=== PATIENT | male | born 1960 | race Caucasian/White ===

== ENCOUNTER → 2019-11-26 | Emergency (ER) | payer OTHER ==
[~2019-11-26] VITALS: Ht 162.6 cm; Wt 72.6 kg
== END | disposition home or self-care (01) ==
LOC: ER 19:21
DX: N20.0 Calculus of kidney (principal)

== ENCOUNTER → 2019-12-01 17:35 | Outpatient (CLI) | payer OTHER | END | disposition home or self-care (01) | LOC: LAB 17:35 | DX: R97.20 Elevated prostate specific antigen [PSA] (principal); C64.1 Malignant neoplasm of right kidney, except renal pelvis ==

== ENCOUNTER → 2019-12-04 | Outpatient (CLI) | payer OTHER | END | disposition home or self-care (01) | LOC: TOM 08:21 | DX: C64.1 Malignant neoplasm of right kidney, except renal pelvis (principal) ==

== ENCOUNTER 2020-01-18 10:01 | Outpatient (CLI) | payer OTHER | END 2020-01-18 10:06 | disposition home or self-care (01) | LOC: LAB 10:01 | DX: C64.1 Malignant neoplasm of right kidney, except renal pelvis (principal) ==

== ENCOUNTER 2020-01-18 11:30 | Outpatient (CLI) | payer OTHER | END 2020-01-18 11:50 | disposition home or self-care (01) | LOC: SONOGRAMA 11:30 | DX: N50.89 Other specified disorders of the male genital organs (principal); C64.1 Malignant neoplasm of right kidney, except renal pelvis ==

== ENCOUNTER 2020-01-31 13:47 | Outpatient (CLI) | payer OTHER | END 2020-01-31 14:01 | disposition home or self-care (01) | LOC: RAD 13:47 | DX: C64.1 Malignant neoplasm of right kidney, except renal pelvis (principal) ==

== ENCOUNTER 2020-02-06 08:36 | Outpatient (CLI) | payer OTHER | END 2020-02-06 09:30 | disposition home or self-care (01) | LOC: NUCLEAR 08:36 | DX: C64.1 Malignant neoplasm of right kidney, except renal pelvis (principal) | CPT/HCPCS: 78708; A9539 ==

== ENCOUNTER 2020-02-06 08:37 | Outpatient (CLI) | payer OTHER | END 2020-02-06 08:48 | disposition home or self-care (01) | LOC: LAB 08:37 | DX: N39.0 Urinary tract infection, site not specified (principal); C64.1 Malignant neoplasm of right kidney, except renal pelvis ==

== ENCOUNTER 2020-05-03 07:29 | Outpatient (CLI) | payer OTHER | END 2020-05-03 07:33 | disposition home or self-care (01) | LOC: NUCLEAR 07:29 | PROVIDERS: ATTEND Urology | DX: C64.1 Malignant neoplasm of right kidney, except renal pelvis (principal); Z51.81 Encounter for therapeutic drug level monitoring; R94.31 Abnormal electrocardiogram [ECG] [EKG] | CPT/HCPCS: A9500; 93017; 78452 ==